=== PATIENT | female | born 1975 | race Caucasian/White ===

== ENCOUNTER 2017-07-10 15:23 | Emergency (ER) | payer SELFPAY ==
[~2017-07-10] VITALS: Ht 167.6 cm; Wt 100.9 kg
[2017-07-10 17:43] VITALS: BP 153/108
== END 2017-07-10 17:58 | disposition home or self-care (01) ==
LOC: ED 15:23
DX: J02.9 Acute pharyngitis, unspecified (principal)
CPT/HCPCS: J1100; J1885; J3490